=== PATIENT | male | born 2000 | race Caucasian/White ===

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

== ENCOUNTER 2024-04-10 16:21 | Inpatient (IN) ==
[2024-04-10 17:55] LABS: Basophils # (auto) 0.04 K/uL (0.00-0.20); Basophils % (auto) 0.8 %; Eosinophils # (auto) 0.15 K/uL (0.00-0.50); Eosinophils % (auto) 2.8 %; Hematocrit (blood only) 34.5 % (42.0-52.0); Hemoglobin 12.4 g/dl (14.0-18.0); Immature Granulocytes # (auto) 0.02 K/uL (0.01-0.20); Immature Granulocytes % (auto) 0.4 %; Lymphocytes # (auto) 2.51 K/uL (1.20-3.40); Lymphocytes % (auto) 47.1 %; Mean Corpuscular Hemoglobin 31.1 pg (25.0-34.0); Mean Corpuscular Hgb Conc 35.9 g/dL (32.0-36.0); Mean Corpuscular Volume 86.5 fL (80.0-100.0); Mean Platelet Volume 12.2 fL (9.4-12.4); Monocytes # (auto) 0.66 K/uL (0.11-0.59); Monocytes % (auto) 12.4 %; Neutrophils # (auto) 1.95 K/uL (1.40-6.50); Neutrophils % (auto) 36.5 %; Platelet Count 122 K/uL (130-400); RDW Coefficient of Variation 12.3 % (11.5-14.5); RDW Standard Deviation 39.1 fL (36.4-46.3); Red Blood Count 3.99 M/uL (4.70-6.10); White Blood Count 5.33 K/ul (4.8-10.8)
[2024-04-10 18:12] LABS: Alanine Aminotransferase 6 U/L (7-52); Albumin Globulin Ratio 1.3 (0.9-2); Albumin Level 3.9 gm/dl (3.4-5.0); Alkaline Phosphatase 49 U/L (34-104); Anion Gap 5 (3-11); Aspartate Aminotransferase 11 U/L (13-39); BUN Creatinine Ratio 26.9 (10-20); Bilirubin,Total 0.3 mg/dl (0.2-1.0); Blood Urea Nitrogen 25 mg/dl (6-23); Carbon Dioxide 29 mmol/L (21-32); Chloride 102 mmol/L (98-107); Glucose 86 mg/dl (70-99(Fasting)); Potassium 3.7 mmol/L (3.5-5.1); Sodium 136 mmol/L (136-145); Total Protein 6.9 gm/dl (6.0-8.3)
[2024-04-10] MEDS: SODIUM CHLORIDE 0.9% 1,000 ML IV ONE (18:16)
--- NOTE | 2024-04-10 18:27 | Emergency Department Note ---
Impression & Plan AMS (altered mental status) ED Provider Note NAME: AGA CHAPPELL AGE: 24 SEX: Male INFORMANT: Patient's family ED PROVIDER(S): Good Miner MD CHIEF COMPLAINT: Altered mental status PLAN: Disposition: Admitted Outpatient prescription management: none Referral: None MEDICAL DECISION MAKING: Patient presented because of altered mental status. He was arousable to voice and painful stimuli however was not providing any detailed history. Father is present and helps. Mother also presented and added to history. Patient underwent a workup. His ECG was normal. Cardiac monitoring was unremarkable. Patient was afebrile. He had unremarkable CBC, chemistry panel, LFTs, troponin, and medical alcohol. Tylenol and salicylate levels were negative as well. UDS was abnormal but consistent with his outpatient prescriptions. CT imaging the head was unremarkable. Chest x-ray negative as well. BioFire testing performed and revealed no evidence of an acute infection. The patient was hydrated. Further evaluation and management in the hospital will be necessary to elucidate his decline over the recent months. Family in agreement. Consultation was made with Dr. Curry of the [facility] service. Case discussed and diagnostics were reviewed. Patient was evaluated in the ER for further management. Care/management discussed with: wholesale manager Level of care consideration(s): After review of the information above and other included data, I feel the patient requires escalation of care to admission Triage Nursing notes: reviewed and agree them. Vital Signs: reviewed and remarkable for no significant abnormalities Additional History obtained from: Mother and father Chronic Medical/Social Conditions affecting care: Anxiety, bipolar Prior/ Outside/ External records reviewed: none Differential Diagnosis: Medication induced, infection, hypoglycemia, electrolyte abnormalities, overdose, toxicologic, cardiac sources, intracerebral event, neurologic, trauma, psychiatric, as well as other pathologies. Diagnostics, independently interpreted by me: ECG: Twelve-lead ECG reveals normal sinus rhythm at 92 beats per minute. No evidence of pericarditis, ischemia, ectopy, or dysrhythmia. Cardiac Monitoring: Cardiac monitoring ordered by me: The patient was placed on continuous cardiac monitoring and observed. It revealed a normal sinus rhythm at 64 beats per minute without ectopy or evidence of dysrhythmia. Medical decision rules: none Imaging studies: Head CT: A noncontrast CT scan of the head was performed and was negative for tumor, fracture, intracranial hemorrhage, or other acute pathology. Chest x-ray. Findings: A chest x-ray was performed and revealed no pneumothorax, effusion, infiltrate, pulmonary edema, free air under the diaphragm, or wide mediastinum. Impression: No acute disease. HPI: 24 year old Male arrives for evaluation of change in mental status. Father is present and helps with history. This started about 6 months ago and is worse over the last week. Patient was at mental health today and was lethargic and falling. Father notes he fell against the wall. The patient also notes the following associated symptoms, . The patient has had no new medication prescribed for relieving factors. Father notes that the patient has been sleeping for about 22 hours a day over the recent weeks. He is unsure of how the patient takes his medications because he does not monitor it. He is unaware of the patient taking any extra medications. History is limited secondary to the patient's mental status. PAST MEDICAL HISTORY: See Below, bipolar PAST SURGICAL HISTORY: See Below, SOCIAL HISTORY: See Below, lives with father HOME MEDICATIONS: See Below ALLERGIES: See Below VITALS: See Below PHYSICAL EXAMINATION: GENERAL: Sleeping but arousable, fatigued-appearing, in no distress HENT: Normocephalic, atraumatic. Oropharynx unremarkable. EYES: Normal conjunctiva. Sclera non-icteric. NECK: Inspection normal. Non-tender. Supple. No nuchal rigidity. FROM. No masses. RESPIRATORY: Clear to auscultation. No wheezes. No rales. Normal respiratory effort. Protecting airway. CARDIAC: Normal rate. Normal rhythm. No murmurs. No rubs. Extremities warm and well perfused. Pulses equal. No JVD. GI: Soft, non-distended. No tenderness to palpation. No rebound or guarding. No masses. RECTAL: Deferred. MUSCULOSKELETAL: Atraumatic. Chest examination reveals no tenderness. The back is symmetrical on inspection without obvious abnormality. There is no CVA tenderness to palpation. No joint edema. LOWER EXTREMITIES: Calves are equal size bilaterally and non-tender. No edema. No discoloration. NEURO: Altered sensorium. Not following commands. Responds to painful stimuli. SKIN: No rash or jaundice noted. PROCEDURES: none CRITICAL CARE: none OBSERVATION NOTE: none Past Med/Surg History Problem List AMS (altered mental status) (Acute) Substance abuse Borderline personality disorder Homicidal ideation (Acute) Bipolar disorder (Chronic) Generalized anxiety disorder (Chronic) Medical History Deliberate self-cutting Auditory hallucination Suicidal ideation Family History Other No significant family history Social History Smoking Status: Unknown if ever smoked Tobacco Type: E-cigarettes / Vaping Hx Substance Use: Yes Preferred Language: Thai Communication Ability: Impaired Electrical Instrument Repairer Required: No Beliefs That Will Affect Care: None Current Living Situation: Parent Current Living Situation Comment: Lives with father, parents are Other Information That Helps Us Care for You: No Feels Safe at Home: Yes Safety Concerns: Feels Safe At This Time Assistive Devices: None Allergies Allergies Allergy/AdvReac Type Severity Reaction Status Date / Time No Known Allergies Allergy Unverified 04/10/24 23:56 Home Meds Home Medications Medication Instructions Recorded Confirmed buprenorphine 8.6 mg-naloxone 2.1 1 tab sublingual BID 04/10/24 04/10/24 mg sublingual tablet (Zubsolv) cariprazine 6 mg capsule (Vraylar) 6 mg PO QAM 04/10/24 04/10/24 clozapine 100 mg tablet 100 mg PO HS 04/10/24 04/10/24 deutetrabenazine 12 mg 12 mg PO DAILY 04/10/24 04/10/24 tablet,extended release 24 hr (Austedo XR) dextromethorphan IR 45 1 tab PO BID 04/10/24 04/10/24 mg-bupropion ER 105 mg biphasic tablet (Auvelity) divalproex 500 mg tablet,extended 1,500 mg PO BID 04/10/24 04/10/24 release 24 hr gabapentin 600 mg tablet 600 mg PO QID 04/10/24 04/10/24 lisdexamfetamine 30 mg capsule 30 mg PO QAM 04/10/24 04/10/24 omega-3 fatty acids 1,000 mg 2,000 mg PO DAILY 04/10/24 04/10/24 capsule topiramate 100 mg tablet 100 mg PO AMHS 04/10/24 04/10/24 trazodone 150 mg tablet 300 mg PO HS 04/10/24 04/10/24 Results & Data (ED) Vital Signs Vital Signs - 24 hr 04/10/24 16:59 04/10/24 17:56 04/10/24 18:17 Temperature 36.8 C Temperature Source Temporal Artery Scan Pulse Rate 91 H 92 H Respiratory Rate 20 Respiratory Effort / Characteristics Non-Labored Spontaneous Respiratory Depth Normal Blood Pressure 94/62 L 92/54 L Blood Pressure Mean 72 67 Pulse Oximetry 93 Oxygen Delivery Method Room Air Sepsis Recent Fever Within 48 Hours No Sepsis New/Unexplained Change in Mental Status N/A Sepsis Action Taken by Nursing No Action Required 04/10/24 18:21 04/10/24 18:27 04/10/24 18:30 Temperature Temperature Source Pulse Rate 70 73 Respiratory Rate 12 16 Respiratory Effort / Characteristics Respiratory Depth Blood Pressure 112/79 Blood Pressure Mean 88 Pulse Oximetry 96 99 Oxygen Delivery Method Room Air Room Air Sepsis Recent Fever Within 48 Hours Sepsis New/Unexplained Change in Mental Status Sepsis Action Taken by Nursing 04/10/24 18:48 04/10/24 18:57 04/10/24 19:00 Temperature Temperature Source Pulse Rate 76 75 Respiratory Rate 16 12 Respiratory Effort / Characteristics Respiratory Depth Blood Pressure 107/66 Blood Pressure Mean 81 Pulse Oximetry 97 98 Oxygen Delivery Method Room Air Room Air Sepsis Recent Fever Within 48 Hours Sepsis New/Unexplained Change in Mental Status Sepsis Action Taken by Nursing 04/10/24 19:03 04/10/24 19:30 04/10/24 19:30 Temperature Temperature Source Pulse Rate 73 72 Respiratory Rate 12 18 Respiratory Effort / Characteristics Respiratory Depth Blood Pressure 115/66 115/66 Blood Pressure Mean 85 82 Pulse Oximetry 98 100 Oxygen Delivery Method Room Air Room Air Sepsis Recent Fever Within 48 Hours Sepsis New/Unexplained Change in Mental Status Sepsis Action Taken by Nursing 04/10/24 19:48 04/10/24 20:00 04/10/24 20:03 Temperature Temperature Source Pulse Rate 69 69 Respiratory Rate 13 14 Respiratory Effort / Characteristics Respiratory Depth Blood Pressure 113/75 Blood Pressure Mean 89 Pulse Oximetry 100 99 Oxygen Delivery Method Room Air Room Air Sepsis Recent Fever Within 48 Hours Sepsis New/Unexplained Change in Mental Status Sepsis Action Taken by Nursing 04/10/24 20:09 04/10/24 20:30 Temperature Temperature Source Pulse Rate 69 Respiratory Rate 12 Respiratory Effort / Characteristics Respiratory Depth Blood Pressure 112/68 Blood Pressure Mean 80 Pulse Oximetry 99 Oxygen Delivery Method Room Air Sepsis Recent Fever Within 48 Hours Sepsis New/Unexplained Change in Mental Status Sepsis Action Taken by Nursing Laboratory Data 04/10/24 17:34 04/10/24 17:34 Lab Results 04/10/24 04/10/24 04/10/24 Range/Units 17:34 18:18 19:36 WBC 5.33 (4.8-10.8) K/ul RBC 3.99 L (4.70-6.10) M/uL Hgb 12.4 L (14.0-18.0) g/dl Hct 34.5 L (42.0-52.0) % MCV 86.5 (80.0-100.0) fL MCH 31.1 (25.0-34.0) pg MCHC 35.9 (32.0-36.0) g/dL RDW Std Deviation 39.1 (36.4-46.3) fL RDW Coeff of Silverio 12.3 (11.5-14.5) % Plt Count 122 L (130-400) K/uL MPV 12.2 (9.4-12.4) fL Immature Gran % (Auto) 0.4 % Neut % (Auto) 36.5 % Lymph % (Auto) 47.1 % Emanuel % (Auto) 12.4 % Eos % (Auto) 2.8 % Baso % (Auto) 0.8 % Neut # (Auto) 1.95 (1.40-6.50) K/uL Lymph # (Auto) 2.51 (1.20-3.40) K/uL Emanuel # (Auto) 0.66 H (0.11-0.59) K/uL Eos # (Auto) 0.15 (0.00-0.50) K/uL Baso # (Auto) 0.04 (0.00-0.20) K/uL Immature Gran # (Auto) 0.02 (0.01-0.20) K/uL PT 11.5 (9.0-12.0) Seconds INR 1.1 (0.9-1.1) Sodium 136 (136-145) mmol/L Potassium 3.7 (3.5-5.1) mmol/L Chloride 102 (98-107) mmol/L Carbon Dioxide 29 (21-32) mmol/L Anion Gap 5 (3-11) BUN 25 H (6-23) mg/dl Creatinine 0.93 (0.6-1.4) mg/dl Est Cr Clr Drug Dosing Not Reportable eGFR 119.06 BUN/Creatinine Ratio 26.9 H (10-20) Glucose 86 (70-99(Fasting)) mg/dl Calcium 9.0 (8.6-10.3) mg/dl Magnesium 2.2 (1.7-2.4) mg/dl Total Bilirubin 0.3 (0.2-1.0) mg/dl AST 11 L (13-39) U/L ALT 6 L (7-52) U/L Alkaline Phosphatase 49 (34-104) U/L Total Creatine Kinase 31 (30-223) U/L Troponin I High Sens < 2.3 (0-20) pg/ml Total Protein 6.9 (6.0-8.3) gm/dl Albumin 3.9 (3.4-5.0) gm/dl Globulin 3.0 (2.5-4.0) gm/dl Albumin/Globulin Ratio 1.3 (0.9-2) Lipase 22 (11-82) U/L Vitamin B12 (180-914) pg/ml TSH 0.787 (0.300-4.500) uIu/ml Urine Color Yellow Urine Appearance Clear (Clear) Urine pH 6.0 (4.5-7.5) Ur Specific [place] 1.019 (1.000-1.030) Urine Protein Negative (Negative) Urine Glucose (UA) Negative (Negative) Urine Ketones Trace H (Negative) Urine Blood Negative (Negative) Urine Nitrite Negative (Negative) Urine Bilirubin Negative (Negative) Urine Urobilinogen Negative (Negative) Ur Leukocyte Esterase Negative (Negative) Salicylates < 3.0 L (3.0-30) mg/dl Urine Opiates Screen Neg (Neg) Ur Methadone, Qual Neg (Neg) Urine Fentanyl Screen Neg (Neg) Acetaminophen < 3 L (10-30) ug/ml Urine Barbiturates Neg (Neg) Ur Phencyclidine (PCP) Neg (Neg) U Amphetamin/Meth Scrn Pos H (Neg) MDMA (Ecstasy) Screen Pos H (Neg) U Benzodiazepines Scrn Neg (Neg) Ur Cocaine Metabolite Neg (Neg) U Marijuana (THC) Screen Pos H (Neg) Ethyl Alcohol mg/dL (<10.0) mg/dl Adenovirus (PCR) Not Detected (NotDetected) B. pertussis DNA (PCR) Not Detected (NotDetected) B.parapertussis DNA PCR Not Detected (NotDetected) C. pneumoniae DNA (PCR) Not Detected (NotDetected) Coronavirus OC43 (PCR) Not Detected (NotDetected) Coronavirus HKU1 (PCR) Not Detected (NotDetected) Coronavirus 229E (PCR) Not Detected (NotDetected) SARS-CoV-2 (PCR) Not Detected (NotDetected) Coronavirus NL63 (PCR) Not Detected (NotDetected) Human Metapneumovir PCR Not Detected (NotDetected) Influenza Type A (PCR) Not Detected (NotDetected) Influenza Type B (PCR) Not Detected (NotDetected) M. pneumoniae (PCR) Not Detected (NotDetected) Parainfluenza 1 (PCR) Not Detected (NotDetected) Parainfluenza 2 (PCR) Not Detected (NotDetected) Parainfluenza 3 (PCR) Not Detected (NotDetected) Parainfluenza 4 (PCR) Not Detected (NotDetected) RSV (PCR) Not Detected (NotDetected) Entero/Rhino (PCR) Not Detected (NotDetected) 04/10/24 Range/Units 19:46 WBC (4.8-10.8) K/ul RBC (4.70-6.10) M/uL Hgb (14.0-18.0) g/dl Hct (42.0-52.0) % MCV (80.0-100.0) fL MCH (25.0-34.0) pg MCHC (32.0-36.0) g/dL RDW Std Deviation (36.4-46.3) fL RDW Coeff of Silverio (11.5-14.5) % Plt Count (130-400) K/uL MPV (9.4-12.4) fL Immature Gran % (Auto) % Neut % (Auto) % Lymph % (Auto) % Emanuel % (Auto) % Eos % (Auto) % Baso % (Auto) % Neut # (Auto) (1.40-6.50) K/uL Lymph # (Auto) (1.20-3.40) K/uL Emanuel # (Auto) (0.11-0.59) K/uL Eos # (Auto) (0.00-0.50) K/uL Baso # (Auto) (0.00-0.20) K/uL Immature Gran # (Auto) (0.01-0.20) K/uL PT (9.0-12.0) Seconds INR (0.9-1.1) Sodium (136-145) mmol/L Potassium (3.5-5.1) mmol/L Chloride (98-107) mmol/L Carbon Dioxide (21-32) mmol/L Anion Gap (3-11) BUN (6-23) mg/dl Creatinine (0.6-1.4) mg/dl Est Cr Clr Drug Dosing eGFR BUN/Creatinine Ratio (10-20) Glucose (70-99(Fasting)) mg/dl Calcium (8.6-10.3) mg/dl Magnesium (1.7-2.4) mg/dl Total Bilirubin (0.2-1.0) mg/dl AST (13-39) U/L ALT (7-52) U/L Alkaline Phosphatase (34-104) U/L Total Creatine Kinase (30-223) U/L Troponin I High Sens (0-20) pg/ml Total Protein (6.0-8.3) gm/dl Albumin (3.4-5.0) gm/dl Globulin (2.5-4.0) gm/dl Albumin/Globulin Ratio (0.9-2) Lipase (11-82) U/L Vitamin B12 679 (180-914) pg/ml TSH (0.300-4.500) uIu/ml Urine Color Urine Appearance (Clear) Urine pH (4.5-7.5) Ur Specific [place] (1.000-1.030) Urine Protein (Negative) Urine Glucose (UA) (Negative) Urine Ketones (Negative) Urine Blood (Negative) Urine Nitrite (Negative) Urine Bilirubin (Negative) Urine Urobilinogen (Negative) Ur Leukocyte Esterase (Negative) Salicylates (3.0-30) mg/dl Urine Opiates Screen (Neg) Ur Methadone, Qual (Neg) Urine Fentanyl Screen (Neg) Acetaminophen (10-30) ug/ml Urine Barbiturates (Neg) Ur Phencyclidine (PCP) (Neg) U Amphetamin/Meth Scrn (Neg) MDMA (Ecstasy) Screen (Neg) U Benzodiazepines Scrn (Neg) Ur Cocaine Metabolite (Neg) U Marijuana (THC) Screen (Neg) Ethyl Alcohol mg/dL < 10.0 (<10.0) mg/dl Adenovirus (PCR) (NotDetected) B. pertussis DNA (PCR) (NotDetected) B.parapertussis DNA PCR (NotDetected) C. pneumoniae DNA (PCR) (NotDetected) Coronavirus OC43 (PCR) (NotDetected) Coronavirus HKU1 (PCR) (NotDetected) Coronavirus 229E (PCR) (NotDetected) SARS-CoV-2 (PCR) (NotDetected) Coronavirus NL63 (PCR) (NotDetected) Human Metapneumovir PCR (NotDetected) Influenza Type A (PCR) (NotDetected) Influenza Type B (PCR) (NotDetected) M. pneumoniae (PCR) (NotDetected) Parainfluenza 1 (PCR) (NotDetected) Parainfluenza 2 (PCR) (NotDetected) Parainfluenza 3 (PCR) (NotDetected) Parainfluenza 4 (PCR) (NotDetected) RSV (PCR) (NotDetected) Entero/Rhino (PCR) (NotDetected) Administered Medications Lactated Ringer's (Lr) 1,000 mls @ 100 mls/hr IV .Q10H [place] Stop: 04/11/24 20:14 Last Admin: 04/11/24 00:36 Dose: 100 mls/hr Documented By: JESSICA Discontinued Medications Sodium Chloride (Nss) 1,000 mls @ 999 mls/hr IV .Q1H1M ONE Stop: 04/10/24 19:09 Last Infusion: 04/10/24 19:20 Dose: Infused Documented By: Admin: 04/10/24 18:16 Dose: 999 mls/hr Documented By: LESAK Miscellaneous Information (Patient's Allergy Info Needs Entered) 1 each N/A ONE ONE Stop: 04/10/24 23:01 Last Admin: 04/10/24 23:56 Dose: Not Given Documented By: JESSICA Imaging Data Radiologist's Impression: Head CT 04/10/24 18:11 Clinical History: Injury. Technique: Axial computed tomography images were obtained of the brain from the vertex to the skull base without intravenous contrast. Findings: There is no sign of intracranial hemorrhage. There is normal kang-white matter differentiation with no sign of acute or old infarction. No midline shift or other form of herniation is identified. There is no hydrocephalus. No obvious mass lesion is seen on this noncontrast examination. The visualized portions of the orbits and paranasal sinuses appear unremarkable. The mastoid air cells appear clear Impression: Unremarkable noncontrast CT of the brain Electronically signed by Chris Mims 04-10-2024 7:28 PM Discharge Plan Visit Data Chief Complaint: Confusion Stated Complaint: LOW BLOOD PRESSURE ED Provider: Good Miner Discharge Problem: AMS (altered mental status) Patient Disposition: Admitted As Inpatient Discharge Instructions Interventions: ED Discharge Assessment Last Done: 04/10/24 22:46
[2024-04-10 18:35] LABS: INR 1.1 (0.9-1.1); Prothrombin Time 11.5 Seconds (9.0-12.0)
[2024-04-10 18:40] LABS: Creatine Kinase 31 U/L (30-223); Lipase 22 U/L (11-82); Magnesium 2.2 mg/dl (1.7-2.4)
[2024-04-10 18:46] LABS: Acetaminophen < 3 ug/ml (10-30); Salicylate < 3.0 mg/dl (3.0-30)
[2024-04-10 18:47] LABS: Troponin I High Sensitivity < 2.3 pg/ml (0-20)
[2024-04-10 19:11] LABS: Adenovirus PCR Not Detected (NotDetected); Bordetella parapertussis PCR Not Detected (NotDetected); Bordetella pertussis PCR Not Detected (NotDetected); Chlamydia pneumoniae PCR Not Detected (NotDetected); Coronavirus 229E PCR Not Detected (NotDetected); Coronavirus CoV-2 (COVID19)PCR Not Detected (NotDetected); Coronavirus HKU1 PCR Not Detected (NotDetected); Coronavirus NL63 PCR Not Detected (NotDetected); Coronavirus OC43PCR Not Detected (NotDetected); Human Metapneumovirus PCR Not Detected (NotDetected); Influenza A PCR Not Detected (NotDetected); Influenza B PCR Not Detected (NotDetected); Mycoplasma pneumoniae PCR Not Detected (NotDetected); Parainfluenza Virus 1 PCR Not Detected (NotDetected); Parainfluenza Virus 2 PCR Not Detected (NotDetected); Parainfluenza Virus 3 PCR Not Detected (NotDetected); Parainfluenza Virus 4 PCR Not Detected (NotDetected); Respiratory Syncytial VirusPCR Not Detected (NotDetected); Rhinovirus/Enterovirus PCR Not Detected (NotDetected)
--- NOTE | 2024-04-10 19:28 | CT Scan Report ---
Clinical History: Injury. Technique: Axial computed tomography images were obtained of the brain from the vertex to the skull base without intravenous contrast. Findings: There is no sign of intracranial hemorrhage. There is normal kang-white matter differentiation with no sign of acute or old infarction. No midline shift or other form of herniation is identified. There is no hydrocephalus. No obvious mass lesion is seen on this noncontrast examination. The visualized portions of the orbits and paranasal sinuses appear unremarkable. The mastoid air cells appear clear Impression: Unremarkable noncontrast CT of the brain Electronically signed by Chris Mims 04-10-2024 7:28 PM
[2024-04-10 19:57] LABS: Appearance Urine Clear (Clear); Bilirubin Urine Negative (Negative); Blood Urine Negative (Negative); Color Urine Yellow; Glucose Urine UA Negative (Negative); Ketones Urine Trace (Negative); Leukocyte Esterase Urine Negative (Negative); Nitrite Urine Negative (Negative); Protein Urine Negative (Negative); Specific Gravity Urine 1.019 (1.000-1.030); Urobilinogen Urine Negative (Negative)
[2024-04-10 20:33] LABS: Amphetamines+Metham, Urine Pos (Neg); Barbiturates, Urine Neg (Neg); Benzodiazepine, Urine Neg (Neg); Cocaine, Urine Neg (Neg); Fentanyl, Urine Neg (Neg); MDMA (Ecstacy), Urine Pos (Neg); Marijuana, Urine Pos (Neg); Methadone, Urine Neg (Neg); Opiate, Urine Neg (Neg); Phencyclidine, Urine Neg (Neg)
--- NOTE | 2024-04-10 20:37 | History & Physical Report ---
Date of Service April 10, 2024 Assessment & Plan (1) AMS (altered mental status): Plan: 24yo male with history of Anxiety, Depression, OCD, Personality disorder presenting from home with progressive functional decline over the last 6 months. Patient has been increasingly somnolent, difficulty with balance. He did fall today and strike his head. Patient is afebrile, HD stable, no obvious source of infection. Renal function and LFTS are unremarkable. Electroltyes WNL. Ammonia and TSH are WNL. He is on multiple psychiatric medications and manages them himself. Consider medication side effects contributing to patient's decline and current status? -Admit to medical with telemetry -Keep NPO for now, maintain fall precautions and aspiration precautions -Neuro checks with GCS q 4 hours -Will hold medications -Check depakote level -LR at 100mL/hr x 2L -Maintain 1:1 observation -Psychiatry consultation appreciated -Medications should be reviewed with patient's outpatient psychiatric provider History of Present Illness Chief Complaint: confusion Primary Care Provider: Salas Morales MD 24yo male with history of anxiety, depression, OCD presenting with confusion. Patient was unable to provide history at time of admission. History obtained through discussion with ER attending and staff. Patient with longstanding history of psychiatric illness. He presents today with 6 months of progressive functional decline - lethargy and falling. Father reports that patient sleeps 22 hours per day. He is managing his own medications but family is uncertain how he is taking them. Patient with low blood pressure on arrival at 92/54 which improved after 1L NSS ER Course: NSS x 1L Allergies Allergy/AdvReac Type Severity Reaction Status Date / Time No Known Allergies Allergy Unverified 04/10/24 23:56 Home Medications Medication Instructions Recorded Confirmed Type buprenorphine 8.6 mg-naloxone 2.1 1 tab sublingual BID 04/10/24 04/10/24 History mg sublingual tablet (Zubsolv) cariprazine 6 mg capsule (Vraylar) 6 mg PO QAM 04/10/24 04/10/24 History clozapine 100 mg tablet 100 mg PO HS 04/10/24 04/10/24 History deutetrabenazine 12 mg 12 mg PO DAILY 04/10/24 04/10/24 History tablet,extended release 24 hr (Austedo XR) dextromethorphan IR 45 1 tab PO BID 04/10/24 04/10/24 History mg-bupropion ER 105 mg biphasic tablet (Auvelity) divalproex 500 mg tablet,extended 1,500 mg PO BID 04/10/24 04/10/24 History release 24 hr gabapentin 600 mg tablet 600 mg PO QID 04/10/24 04/10/24 History lisdexamfetamine 30 mg capsule 30 mg PO QAM 04/10/24 04/10/24 History omega-3 fatty acids 1,000 mg 2,000 mg PO DAILY 04/10/24 04/10/24 History capsule topiramate 100 mg tablet 100 mg PO AMHS 04/10/24 04/10/24 History trazodone 150 mg tablet 300 mg PO HS 04/10/24 04/10/24 History Past Med/Surg History Problem List AMS (altered mental status) (Acute) Substance abuse Borderline personality disorder Homicidal ideation (Acute) Bipolar disorder (Chronic) Generalized anxiety disorder (Chronic) Medical History Deliberate self-cutting Auditory hallucination Suicidal ideation Family History Other No significant family history Social History Smoking Status: Never smoker Tobacco Type: E-cigarettes / Vaping Preferred Language: Filipino Communication Ability: Effective Beliefs That Will Affect Care: None Current Living Situation: Family Feels Safe at Home: Yes Assistive Devices: Glasses Review of Systems Review of Systems: Unobtainable due to cognitive status Physical Exam Physical Exam: General: patient somnolent, does not answer questions or follow commands at present, opens eyes to verbal command and withdraws from pain Skin: warm, dry, intact, no rashes or lesions HEENT: NC/AT, pupils equal round and sluggishly reactive, anicteric sclera, conjunctiva without injection, external ear normal to inspection and nontender, nares patent, dry mucus membranes, dentition intact, no oropharyngeal lesions, neck supple, trachea midline, no LAD, no thyromegaly, no JVD Heart: +S1/S2, regular, no m/r/g Lungs: equal air entry bilaterally, no rales/rhonchi/wheezes Abd: +BS, soft, NT/ND, no masses/organomegaly/ascites Ext: warm, 2+ pulses in UE/LE bilaterally, no clubbing/cyanosis or edema Neuro: Patient somnolent, opens eyes to verbal command and noxious stimuli Results & Data Results & Data Vital Signs (Past 12 Hours) Vital Signs Temp Pulse Resp BP Pulse Ox O2 Del Method 04/10/24 19:48 69 13 100 Room Air 04/10/24 19:30 72 18 115/66 100 Room Air 04/10/24 19:30 115/66 04/10/24 19:03 73 12 98 Room Air 04/10/24 19:00 107/66 04/10/24 18:57 75 12 98 Room Air 04/10/24 18:48 76 16 97 Room Air 04/10/24 18:30 112/79 04/10/24 18:27 73 16 99 Room Air 04/10/24 18:21 70 12 96 Room Air 04/10/24 18:17 92/54 L 04/10/24 17:56 92 H 04/10/24 16:59 36.8 C 91 H 20 94/62 L 93 Room Air Laboratory Results Laboratory Results WBC 5.33 K/ul (4.8-10.8) 04/10/24 17:34 RBC 3.99 M/uL (4.70-6.10) L 04/10/24 17:34 Hgb 12.4 g/dl (14.0-18.0) L 04/10/24 17:34 Hct 34.5 % (42.0-52.0) L 04/10/24 17:34 MCV 86.5 fL (80.0-100.0) 04/10/24 17:34 MCH 31.1 pg (25.0-34.0) 04/10/24 17:34 MCHC 35.9 g/dL (32.0-36.0) 04/10/24 17:34 RDW Std Deviation 39.1 fL (36.4-46.3) 04/10/24 17:34 RDW Coeff of Silverio 12.3 % (11.5-14.5) 04/10/24 17:34 Plt Count 122 K/uL (130-400) L 04/10/24 17:34 MPV 12.2 fL (9.4-12.4) 04/10/24 17:34 Immature Gran % (Auto) 0.4 % 04/10/24 17:34 Neut % (Auto) 36.5 % 04/10/24 17:34 Lymph % (Auto) 47.1 % 04/10/24 17:34 [place] % (Auto) 12.4 % 04/10/24 17:34 Eos % (Auto) 2.8 % 04/10/24 17:34 Baso % (Auto) 0.8 % 04/10/24 17:34 Neut # (Auto) 1.95 K/uL (1.40-6.50) 04/10/24 17:34 Lymph # (Auto) 2.51 K/uL (1.20-3.40) 04/10/24 17:34 [place] # (Auto) 0.66 K/uL (0.11-0.59) H 04/10/24 17:34 Eos # (Auto) 0.15 K/uL (0.00-0.50) 04/10/24 17:34 Baso # (Auto) 0.04 K/uL (0.00-0.20) 04/10/24 17:34 Immature Gran # (Auto) 0.02 K/uL (0.01-0.20) 04/10/24 17:34 PT 11.5 Seconds (9.0-12.0) 04/10/24 17:34 INR 1.1 (0.9-1.1) 04/10/24 17:34 Sodium 136 mmol/L (136-145) 04/10/24 17:34 Potassium 3.7 mmol/L (3.5-5.1) 04/10/24 17:34 Chloride 102 mmol/L (98-107) 04/10/24 17:34 Carbon Dioxide 29 mmol/L (21-32) 04/10/24 17:34 Anion Gap 5 (3-11) 04/10/24 17:34 BUN 25 mg/dl (6-23) H 04/10/24 17:34 Creatinine 0.93 mg/dl (0.6-1.4) 04/10/24 17:34 Est Cr Clr Drug Dosing Not Reportable 04/10/24 17:34 eGFR 119.06 04/10/24 17:34 BUN/Creatinine Ratio 26.9 (10-20) H 04/10/24 17:34 Glucose 86 mg/dl (70-99(Fasting)) 04/10/24 17:34 Calcium 9.0 mg/dl (8.6-10.3) 04/10/24 17:34 Magnesium 2.2 mg/dl (1.7-2.4) 04/10/24 17:34 Total Bilirubin 0.3 mg/dl (0.2-1.0) 04/10/24 17:34 AST 11 U/L (13-39) L 04/10/24 17:34 ALT 6 U/L (7-52) L 04/10/24 17:34 Alkaline Phosphatase 49 U/L (34-104) 04/10/24 17:34 Ammonia 17.0 umol/L (18-72) L 04/10/24 22:56 Total Creatine Kinase 31 U/L (30-223) 04/10/24 17:34 Troponin I High Sens < 2.3 pg/ml (0-20) 04/10/24 17:34 Total Protein 6.9 gm/dl (6.0-8.3) 04/10/24 17:34 Albumin 3.9 gm/dl (3.4-5.0) 04/10/24 17:34 Globulin 3.0 gm/dl (2.5-4.0) 04/10/24 17:34 Albumin/Globulin Ratio 1.3 (0.9-2) 04/10/24 17:34 Lipase 22 U/L (11-82) 04/10/24 17:34 Vitamin B12 679 pg/ml (180-914) 04/10/24 19:46 TSH 0.787 uIu/ml (0.300-4.500) 04/10/24 17:34 Urine Color Yellow 04/10/24 19:36 Urine Appearance Clear (Clear) 04/10/24 19:36 Urine pH 6.0 (4.5-7.5) 04/10/24 19:36 Ur Specific [place] 1.019 (1.000-1.030) 04/10/24 19:36 Urine Protein Negative (Negative) 04/10/24 19:36 Urine Glucose (UA) Negative (Negative) 04/10/24 19:36 Urine Ketones Trace (Negative) H 04/10/24 19:36 Urine Blood Negative (Negative) 04/10/24 19:36 Urine Nitrite Negative (Negative) 04/10/24 19:36 Urine Bilirubin Negative (Negative) 04/10/24 19:36 Urine Urobilinogen Negative (Negative) 04/10/24 19:36 Ur Leukocyte Esterase Negative (Negative) 04/10/24 19:36 Salicylates < 3.0 mg/dl (3.0-30) L 04/10/24 17:34 Urine Opiates Screen Neg (Neg) 04/10/24 19:36 Ur Methadone, Qual Neg (Neg) 04/10/24 19:36 Urine Fentanyl Screen Neg (Neg) 04/10/24 19:36 Acetaminophen < 3 ug/ml (10-30) L 04/10/24 17:34 Urine Barbiturates Neg (Neg) 04/10/24 19:36 Ur Phencyclidine (PCP) Neg (Neg) 04/10/24 19:36 U Amphetamin/Meth Scrn Pos (Neg) H 04/10/24 19:36 MDMA (Ecstasy) Screen Pos (Neg) H 04/10/24 19:36 U Benzodiazepines Scrn Neg (Neg) 04/10/24 19:36 Ur Cocaine Metabolite Neg (Neg) 04/10/24 19:36 U Marijuana (THC) Screen Pos (Neg) H 04/10/24 19:36 Ethyl Alcohol mg/dL < 10.0 mg/dl (<10.0) 04/10/24 19:46 Adenovirus (PCR) Not Detected (NotDetected) 04/10/24 18:18 B. pertussis DNA (PCR) Not Detected (NotDetected) 04/10/24 18:18 B.parapertussis DNA PCR Not Detected (NotDetected) 04/10/24 18:18 C. pneumoniae DNA (PCR) Not Detected (NotDetected) 04/10/24 18:18 Coronavirus OC43 (PCR) Not Detected (NotDetected) 04/10/24 18:18 Coronavirus HKU1 (PCR) Not Detected (NotDetected) 04/10/24 18:18 Coronavirus 229E (PCR) Not Detected (NotDetected) 04/10/24 18:18 SARS-CoV-2 (PCR) Not Detected (NotDetected) 04/10/24 18:18 Coronavirus NL63 (PCR) Not Detected (NotDetected) 04/10/24 18:18 Human Metapneumovir PCR Not Detected (NotDetected) 04/10/24 18:18 Influenza Type A (PCR) Not Detected (NotDetected) 04/10/24 18:18 Influenza Type B (PCR) Not Detected (NotDetected) 04/10/24 18:18 M. pneumoniae (PCR) Not Detected (NotDetected) 04/10/24 18:18 Parainfluenza 1 (PCR) Not Detected (NotDetected) 04/10/24 18:18 Parainfluenza 2 (PCR) Not Detected (NotDetected) 04/10/24 18:18 Parainfluenza 3 (PCR) Not Detected (NotDetected) 04/10/24 18:18 Parainfluenza 4 (PCR) Not Detected (NotDetected) 04/10/24 18:18 RSV (PCR) Not Detected (NotDetected) 04/10/24 18:18 Entero/Rhino (PCR) Not Detected (NotDetected) 04/10/24 18:[address] 04/10/24 18:11 Clinical History: Injury. Technique: Axial computed tomography images were obtained of the brain from the vertex to the skull base without intravenous contrast. Findings: There is no sign of intracranial hemorrhage. There is normal kang-white matter differentiation with no sign of acute or old infarction. No midline shift or other form of herniation is identified. There is no hydrocephalus. No obvious mass lesion is seen on this noncontrast examination. The visualized portions of the orbits and paranasal sinuses appear unremarkable. The mastoid air cells appear clear Impression: Unremarkable noncontrast CT of the brain Electronically signed by Chris Mims 04-10-2024 7:28 PM PG Care Time/CCT Total # of Minutes Spent Total Time Spent with Patient: Total time spent is greater than 50% in coordination of care (as documented) at patient's floor/unit and/or counseling patient: Coding Level of Care Code 37431 INT INP/OBS CARE MIN Diagnoses AMS (altered mental status) R41.82
[2024-04-10] MEDS ORDERED: ACETAMINOPHEN 325 MG TAB PO PRN (22:46)
[2024-04-10] MEDS ORDERED: ONDANSETRON INJ 2 MG/ML 2 ML VIAL IV PRN (22:46)
[2024-04-10 23:22] LABS: Thyroid Stimulating Hormone 0.787 uIu/ml (0.300-4.500)
[2024-04-10] MEDS: Patient's ALLERGY Info needs ENTERED ONE (23:56)
[2024-04-11] MEDS: LACTATED RINGER'S 1,000 ML IV SCH ×2 (00:36→22:38)
[2024-04-11] MEDS: LACTATED RINGER'S 500 ML IV ONE (07:30)
[2024-04-11 07:55] LABS: Hematocrit (blood only) 34.6 % (42.0-52.0); Hemoglobin 12.1 g/dl (14.0-18.0); Mean Corpuscular Hemoglobin 30.9 pg (25.0-34.0); Mean Corpuscular Volume 88.3 fL (80.0-100.0); Mean Platelet Volume 12.2 fL (9.4-12.4); Platelet Count 110 K/uL (130-400); RDW Coefficient of Variation 12.8 % (11.5-14.5); RDW Standard Deviation 41.5 fL (36.4-46.3); Red Blood Count 3.92 M/uL (4.70-6.10); White Blood Count 5.74 K/ul (4.8-10.8)
[2024-04-11 08:24] LABS: Albumin Level 3.6 gm/dl (3.4-5.0); Bilirubin Direct 0.1 mg/dl (0-0.2); Bilirubin,Total 0.4 mg/dl (0.2-1.0); Calcium 8.7 mg/dl (8.6-10.3); Creatinine Clr Calc Pharmacy 149.4 ml/min; Total Protein 6.4 gm/dl (6.0-8.3)
--- NOTE | 2024-04-11 11:15 | Psychiatric Consultation ---
Date of Consultation April 11, 2024 Impression / Recommendations Impression Diagnostically consistent with altered mental status of unclear origin. Differential includes polypharmacy/medication side effects with recent medication changes including addition of high dose trazodone and Austedo and formulation change in suboxone vs intentional misuse of medication/s with known substance use history vs intentional overdose (but difficult to confirm given both his and father's denial of this possibility and no ability to quickly screen levels of prescribed medications, but normal QTc on EKG and labwork and UDS reassuring for lack of significant overdose). Catatonia unlikely as no evide nce for this on exam today, cross em score of 0 vs 2 (if considered repetitive phrases as mutism). Suspect possible overuse of gabapentin due to increased depression recently and his history of attempting to self-medicate using substances and recent requests for benzodiazepines suggesting his desire to feel more sedated. Gabapentin can be misused especially by those more vulnerable to substance use disorders. Given unclear cause of confusion recommend significant reduction of psychiatric medications and then they can be gradually reintroduced as needed. Given his report of increased depression with weight loss and poor appetite recommended inpatient psychiatric hospitalization once medically stable. He declines this, prefers to continue with outpatient treatment. At this time I do not feel he meets 302 criteria, despite review of petitioning statement, as he denies SI, denies HI, denies any hallucinations/psychosis and doesn't present with signs of psychosis on exam nor behavioral dysregulation and father provided reassuring collateral. However, will attempt further collateral from his outpatient psychiatric provider and continue to re-assess criteria. Current risk of self-harm is low given denial of SI, future-oriented, has outpatient providers and engaged in treatment discussions. Chronic risk is moderate to high given multiple prior attempts, psychiatric comorbid diagnoses, hx emotional reactivity, BPD, past hospitalizations but also with protective factors of family support, outpatient providers, and ability to establish therapeutic alliance. Overall, I spent a total of 60 minutes with this case including review of chart records, review of labwork, review of EKG QTc, direct evaluation of the patient at bedside, counseling the patient, discussion of the patient with the hospitalist provider, discussion with the psychiatric liason during clinical rounds, review of collateral historian information from the family and documentation in the electronic health record. (1) Schizoaffective disorder: (2) Borderline personality disorder: (3) Substance use disorder: Plan -If he attempts to leave AMA please call psych liason to determine potential for 302 criteria -Hold prior to admission: * trazodone * prazosin * topiramate * Vyvanse * Vraylar * Depakote * Austedo -Restart gabapentin at 200mg QID given concern that abrupt discontinuation, especially if he has been misusing this, can lead to increased risk for seizures. Would avoid further dose titration in outpatient setting given concern for potential misuse. -Restart clozapine at 50mg HS given abrupt discontinuation can cause clozapine withdrawal psychosis and clozapine helps reduce risk for emergence of psychosis or mood instability. -Valproic acid level pending, consider clozapine level -Monitor for signs of depression, po intake -Psychiatry to continue to follow and re-assess -JOAQUIN signed for [facility], will attempt to get further collateral/records Psych History Identifying Data Lamine Gray is a 24 yo man with a history of schizoaffective disorder, BPD, substance use in sustained remission and on maintenance treatment of buprenorphine (also being used for pain per his report) admitted medically for increased falls, altered mental status. Psychiatry consulted for "confusion, polypharmacy". Chief Complaint "The fall was as a result of being dehydrated". History of Present Illness Lamine presented to the hospital with his father who remains at bedside this morning. Lamine requests his father remain for our interview and signed an JOAQUIN for him. Both report recent increase in sleepiness and poor appetite. Lamine attributes this to depression but also feels in recent days he's been struggling with brain fog and unsteadiness and dizziness which is new. He thinks the fall yesterday may have been due to dehydration. Reviewed 302 petitioning statement completed by his outpatient psychiatric provider Jayla Mota which states concern for worsening depression, possible overdose of medication as father showed picture of pills strewn about in his room. Also describes that he reported delusions and hallucinations and SI in the last 30 days and has experienced weight loss due to poor appetite. Today in discussing these concerns, and his history of involuntary psychiatric admissions due to difficulty with insight at times into the severity of his symptoms, Lamine denies any recent suicidal ideation and adamantly denies that he intentionally took any addition medication or missed medication doses in recent weeks. He confirms history of chronic intermittent SI but denies any suicidal thoughts in the last 60 days. He also denies any recent hallucinations nor delusions nor paranoia. His father confirms this stating he has no concerns that Lamine worsening cognitive status and falls could have been from a suicide attempt and he has no safety concerns for risk of harm to self or misuse of medications. Both report only recent changes were addition of Austedo about 2 weeks ago in exchange from amantadine and recent change in suboxone formulation which Lamine reports is more immediate release and "faster acting, you feel the effect more strongly". Reviewed that sometimes suboxone can interact negatively with other sedating medications to worsen confusion or dizziness. Asked about potentially misusing any of his other medications he reports possible overuse of gabapentin recently "maybe too much gabapentin" due to confusion about timing of when to take it. But later he confirms to me he's been taking gabapentin QID as pre scribed. Lamine participates willingly with assessment but struggles at times with organizing his thoughts, often repeats a phrase 3-4 times before moving forward with the conversation. Long pauses at points while he searches for information, i.e trying to recall the practice name where his teletherapist works, which he attributes to sense of thoughts being cloudy. He expresses some confusion about his recent medication adjustments noting "I need to know how to dose it". Reviewed his current medications with Lamine and his father and confirmed via [employer] review of recent prescription fills. Psychiatric history notable for multiple past suicide attempts, multiple prior psychiatric medication trials and previous inpatient psychiatric admissions (>9, last in 2021 at [place], previously at [facility] in 2020). Currently has been seeing Jayla Mota for last year at [facility] (he signed JOAQUIN), therapy with DR. Mendes via telehealth. Uses medical marijuana, denies any other substance use. Discussed potential benefits of inpatient psychiatric hospitalization for medication adjustments once medically stable and given concern for depression contributing to falls. Both Lamine and his father feel this would not be beneficial nor necessary given past history of involuntary hospitalizations with limited benefit and resulting disruption to outpatient services which his father reports in the past has lead to splitting with outpatient providers and going between providers seeking various medications and resultant polypharmacy. Both feel working with Jayla has been very helpful and both would like to focus on reducing polypharmacy. However, notably 302 petition states he was recently asking to add benzodiazepines so unclear how motivated Lamine truly is to reduce polypharmacy but he's consenting to current recommendation to only restart medications gradually. Allergies Allergy/AdvReac Type Severity Reaction Status Date / Time No Known Allergies Allergy Unverified 04/10/24 23:56 Home Medications Medication Instructions Recorded Confirmed Type buprenorphine 8.6 mg-naloxone 2.1 1 tab sublingual BID 04/10/24 04/10/24 History mg sublingual tablet (Zubsolv) cariprazine 6 mg capsule (Vraylar) 6 mg PO QAM 04/10/24 04/10/24 History clozapine 100 mg tablet 100 mg PO HS 04/10/24 04/10/24 History deutetrabenazine 12 mg 12 mg PO DAILY 04/10/24 04/10/24 History tablet,extended release 24 hr (Austedo XR) dextromethorphan IR 45 1 tab PO BID 04/10/24 04/10/24 History mg-bupropion ER 105 mg biphasic tablet (Auvelity) divalproex 500 mg tablet,extended 1,500 mg PO BID 04/10/24 04/10/24 History release 24 hr gabapentin 600 mg tablet 600 mg PO QID 04/10/24 04/10/24 History lisdexamfetamine 30 mg capsule 30 mg PO QAM 04/10/24 04/10/24 History omega-3 fatty acids 1,000 mg 2,000 mg PO DAILY 04/10/24 04/10/24 History capsule topiramate 100 mg tablet 100 mg PO AMHS 04/10/24 04/10/24 History trazodone 150 mg tablet 300 mg PO HS 04/10/24 04/10/24 History Patient History Medical History (Updated 04/11/24 @ 17:13 by Aysha Eason MD) Substance use disorder Deliberate self-cutting Auditory hallucination Suicidal ideation Family History Other No significant family history Social History Smoking Status: Unknown if ever smoked Tobacco Type: E-cigarettes / Vaping Hx Substance Use: Yes Preferred Language: Cypriot Communication Ability: Impaired [employer] Art [employer] Required: No Beliefs That Will Affect Care: None Current Living Situation: Parent Current Living Situation Comment: Lives with father, parents are Other Information That Helps Us Care for You: No Feels Safe at Home: Yes Safety Concerns: Feels Safe At This Time Assistive Devices: None Physical Exam Psychiatric: Orientation: alert and oriented x 3 Apperance: appropriately dressed Eye Contact: + fair eye contact Motor Behavior: no abnormal motor movements Speech: + abnormal rate/rhythm/volume of speech (repetitive with pauses at times) Affect: + constricted affect Mood: + depressed mood; no anxious mood Thought Process: + perseveration Thought Content: reality based without delusions Suicidal Thoughts: denies suicidal thoughts Homicidal Thoughts: denies homicidal thoughts Hallucinations: no auditory hallucinations and no visual hallucinations Cognition: recent memory grossly intact, remote memory grossly intact, attention grossly intact and language grossly intact Insight: + limited insight Judgment: + limited judgement Vital Signs (Past 24 Hours): Last Vital Signs Temp 36.8 C 04/10/24 16:59 Pulse 51 L 04/11/24 08:03 Resp 18 04/11/24 08:03 BP 122/84 04/11/24 08:03 Pulse Ox 100 04/11/24 08:03 O2 Del Method Room Air 04/10/24 22:30 Results & Data (PSY) Medications Administered Lactated Ringer's (Lr) 1,000 mls @ 100 mls/hr IV .Q10H [place] Stop: 04/11/24 20:14 Last Admin: 04/11/24 08:43 Dose: 100 mls/hr Documented By: Infusion: 04/11/24 08:43 Dose: Infused Documented By: Admin: 04/11/24 00:36 Dose: 100 mls/hr Documented By: JESSICA Coding Level of Care Code 88624 IN/OBS CONSULT LVL 4,60M Diagnoses Schizoaffective disorder F25.9 Borderline personality disorder F60.3 Substance use disorder F19.90
--- NOTE | 2024-04-11 11:25 | Hospitalist Progress Note ---
Date of Service April 11, 2024 Assessment & Plan Admission and Anticipated Discharge Date Admission Date: April 10, 2024 Supervising Physician Co-Signing Physician Notes Toxic Metabolic Encephalopathy - 302 petition from [place] --> Picture of med bottles open on floor, had been asking for benzos recently. Had been following with [facility] for a year and had been stable. Pt denies active SI/HI on admitting provider assessment, and his father is at bedside also reports that he has not had any SI/HI. Discussed w/ Dr. Eason. Does not currently meet 302 criteria. - Hx of suboxone tx for history of opioid use - Sedated, confused state on admission. - Recently switched to Zubsolv formulation of bup-nalox - Recently started on Austedo XR No metabolic acidosis/alkalosis, renal function is normal, no transaminitis, ammonia is normal, UA is uninfected, CBC does not show evidence of infection or anemia and no evidence of agranulocytosis. Patient is afebrile. Alcohol is negative At time of provider assessment 04/11 he is oriented to name, place, and reason for admission although does have some word finding difficulty and generally circumferential thought process. Denies SI/HI Suspect acute toxic encephalopathy with differential including supratherapeutic gabapentin and polypharmacy. Plan as below: -> Start very low dose gabapentin (do not hold entirely due to risk of seizure). 100 now, then 200qid. Will adjust back (home dose 600mg QID) -> Restart low dose clozapine (holding can cause withdrawal psychosis). 50mg daily -> Hold auvelity, hold divalproex, lisdexamfetamine, trazodone, prazoine, vrylar, and topiramate Continue buprenorphinenaloxone, do not feel this is meaningfully contributing and risk of withdrawal if held Did discuss contact information with patient. He would like both his parents listed as HIPAA contacts and emergency contacts, and would like both called in the case of an emergency. Registration notified and will update information. Patient's father is with him at bedside and expresses an understanding of the plan and current condition. Did offer to call patient's mother to also give an update on admission and plan of care to which he declines at time of admission, if he would like an update given or if there are any questions I am happy to discuss these and can be reached through nursing staff. DVT prophylaxis: Low risk, SCDs CODE STATUS: Full code Disposition: MS/T Diet: Safe tray regular Subjective Seen at bedside with his father present. Somewhat increased latency of speech and some word finding difficulty but thought process generally circumferential. No fevers chills, no respiratory symptoms. Denies taking extra medications. Endorses recent switch in buprenorphineSuboxone and changes noted by psychiatry. Denies taking any extra medications or exogenous medications/substances. Reports that his gabapentin dose is supposed to be 2400 mg total daily dose, we directed this when asked if he had any extra doses of gabapentin. Denies SI/HI. Physical Exam Physical Exam: General: Alert and oriented to name, place, city, and date. NAD. Cooperative. Increased speech latency, circumferential thought process. Affect slightly withdrawn. Denies SI/HI. Not responding to internal stimuli. HEENT: Atraumatic, normocephalic. Vision and hearing intact Pulm: Symmetrical chest rise. No increased work of breathing. No respiratory distress. Extremities: Cap refill brisk. Results & Data Results & Data Vital Signs (Past 12 Hours) Vital Signs Pulse Resp BP Pulse Ox 04/11/24 08:03 51 L 18 122/84 100 04/11/24 06:54 62 19 95 04/11/24 06:30 54 L 16 94 04/11/24 06:30 112/74 04/11/24 06:30 112/74 04/11/24 06:06 45 L 15 99 04/11/24 06:00 111/70 04/11/24 05:57 46 L 13 100 04/11/24 05:42 50 L 20 95 04/11/24 05:30 94/51 L 04/11/24 05:30 94/51 L 04/11/24 05:27 47 L 14 98 04/11/24 05:12 49 L 13 97 04/11/24 04:42 52 L 16 97 04/11/24 04:30 102/61 04/11/24 04:18 51 L 13 99 04/11/24 04:00 111/70 04/11/24 04:00 111/70 04/11/24 04:00 55 L 12 100 04/11/24 03:54 55 L 18 99 04/11/24 03:45 60 17 98 04/11/24 03:30 58 L 13 99 04/11/24 03:30 117/80 04/11/24 03:12 55 L 16 99 04/11/24 02:48 49 L 14 99 04/11/24 02:30 124/77 04/11/24 02:30 124/77 04/11/24 02:18 59 L 12 99 04/11/24 02:12 59 L 17 99 04/11/24 02:06 59 L 12 99 04/11/24 01:30 58 L 16 98 04/11/24 01:30 104/62 04/11/24 01:30 104/62 04/11/24 01:30 104/62 04/11/24 01:30 104/62 04/11/24 01:21 59 L 13 99 04/11/24 01:15 58 L 14 98 04/11/24 00:42 64 15 99 04/11/24 00:33 60 13 100 04/11/24 00:30 113/70 04/11/24 00:30 113/70 04/11/24 00:30 113/70 04/11/24 00:30 113/70 04/11/24 00:24 70 15 99 04/11/24 00:15 69 14 99 04/11/24 00:03 77 15 99 04/11/24 00:00 116/80 04/11/24 00:00 116/80 04/10/24 23:59 66 04/10/24 23:30 116/76 PG Care Time/CCT Total # of Minutes Spent Total Time Spent with Patient: Total time spent is greater than 50% in coordination of care (as documented) at patient's floor/unit and/or counseling patient: Coding Level of Care Code 83780 SUB INP/OBS CARE 3/50MIN
[2024-04-11] MEDS: GABAPENTIN 100 MG CAP PO ONE (13:03)
[2024-04-11] MEDS: BUPRENORPHINE/NALOXONE 8/2 MG TAB SL SCH (17:49)
[2024-04-11] MEDS: cloZAPine 25 MG TAB PO SCH (17:49)
[2024-04-11] MEDS: GABAPENTIN 100 MG CAP PO SCH (17:49)
[2024-04-11] MEDS ORDERED: cloZAPine 25 MG TAB PO SCH (21:00)
[2024-04-12 04:36] LABS: Hematocrit (blood only) 33.7 % (42.0-52.0); Hemoglobin 11.8 g/dl (14.0-18.0); Mean Corpuscular Hemoglobin 30.8 pg (25.0-34.0); Mean Platelet Volume 12.5 fL (9.4-12.4); Platelet Count 123 K/uL (130-400); RDW Coefficient of Variation 12.6 % (11.5-14.5); RDW Standard Deviation 40.2 fL (36.4-46.3); Red Blood Count 3.83 M/uL (4.70-6.10); White Blood Count 5.88 K/ul (4.8-10.8)
[2024-04-12 04:43] LABS: Albumin Globulin Ratio 1.2 (0.9-2); Albumin Level 3.5 gm/dl (3.4-5.0); Bilirubin,Total 0.4 mg/dl (0.2-1.0); Calcium 8.8 mg/dl (8.6-10.3); Creatinine Clr Calc Pharmacy 135.8 ml/min; Globulin 2.9 gm/dl (2.5-4.0); Potassium 4.2 mmol/L (3.5-5.1); Total Protein 6.4 gm/dl (6.0-8.3)
[2024-04-12 04:59] LABS: Basophils # (auto) 0.07 K/uL (0.00-0.20); Basophils % (auto) 1.2 %; Eosinophils # (auto) 0.28 K/uL (0.00-0.50); Eosinophils % (auto) 4.8 %; Immature Granulocytes # (auto) 0.02 K/uL (0.01-0.20); Immature Granulocytes % (auto) 0.3 %; Lymphocytes # (auto) 3.43 K/uL (1.20-3.40); Lymphocytes % (auto) 58.3 %; Monocytes # (auto) 0.84 K/uL (0.11-0.59); Monocytes % (auto) 14.3 %; Neutrophils # (auto) 1.24 K/uL (1.40-6.50); Neutrophils % (auto) 21.1 %; Polychromasia 1+
--- NOTE | 2024-04-12 07:21 | Hospitalist Progress Note ---
Date of Service April 12, 2024 Assessment & Plan (1) Acute encephalopathy: Plan: 24yo male with history of Anxiety, Depression, OCD, Personality disorder presenting from home with progressive functional decline over the last 6 months. Patient has been increasingly somnolent, difficulty with balance. He did fall and strike his head. Was lethargic, somnolent and had altered mental status on admission. He has multiple medications which could affect his cognitive status. Unclear what medications he's taking reliably, when dad found him there were pills scattered around the room. Does not seem like an SA. afebrile, HD stable, no obvious source of infection. Renal function and LFTS are unremarkable. Electrolytes WNL. Ammonia and TSH are WNL. VPA level was a little high at 123. Clozaril level was sent but pending, a sendout. # acute toxic encephalopathy - related to polypharmacy. Medications were held except for suboxone, gabapentin which was reduced to 200 mg qid, clozapine which was reduced to 25 mg HS. Today he is awake and alert, normal level of alertness and normal mental status. I discussed his care with the consulting psychiatrist Dr. Eason who says he denies SI or self harming thoughts and may be discharged with outpatient psychiatric follow up. She plans to call his outpatient psychiatrist with update. # cytopenias - neutropenia and thrombocytopenia - probably related to medications. - CBC this wednesday and next week MWF. We are arranging this with primary care. We have call out to his PCP office - not seen recently and needs appt to re- establish care. For discharge the following med changes Gabapentin reduced to 200 mg qid - 2 week prescription sent VPA - restart 500 mg bid today, increase to 1000 mg bid tomorrow and continue clozaril - restart 50 mg tonight and increase to 100 mg daily tomorrow and continue continue suboxone ALL OTHER MEDS HELD pending psychiatry follow up (2) Schizoaffective disorder: (3) Bipolar disorder: (4) Polypharmacy: Admission and Anticipated Discharge Date Admission Date: April 10, 2024 Subjective Feels better, no garnre, cp, dyspnea or n/v/d No confusion or lethargy, walking well Father in room Physical Exam Physical Exam: Last 24h vitals reviewed GEN: no acute distress, sitting in bed HEENT: pupils equal, sclerae anicteric, moist MM RESP: normal WOB CV: def ABD: ND : no ho SKIN: warm and dry, no generalized rashes, no edema NEURO: AOx person, place, and situation. Mentation normal. Face symmetric, speech normal, moves 4 ext spontaneously and equally Results & Data Results & Data Vital Signs (Past 12 Hours) Vital Signs Pulse Pulse Resp BP BP Pulse Ox O2 Del Method 04/12/24 06:00 42 L 14 90/56 L 98 04/12/24 05:01 104/62 04/12/24 05:01 104/62 04/12/24 04:54 59 L 18 99 04/12/24 04:03 56 L 16 99 04/12/24 03:06 50 L 16 96 04/12/24 03:00 106/70 04/12/24 03:00 106/70 04/12/24 02:48 58 L 21 98 04/12/24 02:27 44 L 14 100 04/12/24 01:06 53 L 15 98 04/12/24 01:01 97/59 L 04/12/24 00:51 58 L 15 96 04/12/24 00:36 67 21 100 04/11/24 22:51 59 L 04/11/24 22:50 67 18 109/70 100 Room Air 04/11/24 22:21 56 L 20 90/65 L 99 Room Air 04/11/24 20:24 60 17 98/51 L 99 Room Air Laboratory Results Laboratory Tests 04/12/24 03:09 Hgb 11.8 L Plt Count 123 L Creatinine 0.77 PG Care Time/CCT Total # of Minutes Spent Total Time Spent with Patient: Total time spent is greater than 50% in coordination of care (as documented) at patient's floor/unit and/or counseling patient: Coding Level of Care Code None Diagnoses Acute encephalopathy G93.40 Schizoaffective disorder F25.9 Bipolar disorder F31.9 Active/Remission status: remission status unspecified Polypharmacy Z79.899 (3) Bipolar disorder Active/Remission status: remission status unspecified Qualified Code(s): F31.9 - Bipolar disorder, unspecified
--- NOTE | 2024-04-12 12:08 | Psychiatric Progress Note ---
Date of Service April 12, 2024 Impression / Recommendations Impression Diagnostically consistent with altered mental status of unclear origin. Differential includes polypharmacy/medication side effects with recent medication changes including addition of high dose trazodone and Austedo and formulation change in suboxone vs intentional misuse of medication/s with known substance use history vs intentional overdose (but difficult to confirm given both his and father's denial of this possibility and no ability to quickly screen levels of prescribed medications, but normal QTc on EKG and labwork and UDS reassuring for lack of significant overdose). Catatonia unlikely as no evidence for this on exam today, cross em score of 0 vs 2 (if considered repetitive phrases as mutism). Suspect possible overuse of gabapentin due to increased depression recently and his history of attempting to self-medicate using substances and recent requests for benzodiazepines suggesting his desire to feel more sedated. Gabapentin can be misused especially by those more vulnerable to substance use disorders. Given unclear cause of confusion recommend significant reduction of psychiatric medications and then they can be gradually reintroduced as needed. Given his report of increased depression with weight loss and poor appetite recommended inpatient psychiatric hospitalization once medically stable. He declines this, prefers to continue with outpatient treatment. At this time I do not feel he meets 302 criteria, despite review of petitioning statement, as he denies SI, denies HI, denies any hallucinations/psychosis and doesn't present with signs of psychosis on exam nor behavioral dysregulation and father provided reassuring collateral. Current risk of self-harm is low given denial of SI, future-oriented, has outpatient providers and engaged in treatment discussions. Chronic risk is moderate to high given multiple prior attempts, psychiatric comorbid diagnoses, hx emotional reactivity, BPD, past hospitalizations but also with protective factors of family support, outpatient providers, and ability to establish therapeutic alliance. A: Confusion has resolved, thought process and speech are normal today. Eating and sleeping well. Tolerating reinitiation of select psychiatric medications. Remains no 302 criteria as he continues to deny any safety concerns and no bizarre or disorganized or abnormal behaviors to suggest he cannot meet his basic needs. Asking good and appropriate questions. Reviewed that due to lower ANC today, in mild neutropenic range, that recommendation, since he wants to continue with clozapine, is for three times weekly CBC with ANC until this improves and then he can go back to monthly CBC. He is agreeable to this. Reviewed recommendations regarding restarting Depakote to help with mood stabilization. Valproic acid and clozapine level still pending. Message left with [facility], he agrees to follow-up with them and consents to faxing my notes to them. Overall, I spent a total of 60 minutes with this case including review of chart records, review of labwork, review of EKG QTc, direct evaluation of the patient at bedside, counseling the patient, discussion of the patient with the hospitalist provider, discussion with the psychiatric liason during clinical rounds, review of collateral historian information from the family and documentation in the electronic health record. (1) Schizoaffective disorder: (2) Borderline personality disorder: (3) Substance use disorder: Plan -Stable for discharge from psychiatric standpoint -Discontinue prior to admission: * trazodone * prazosin * topiramate * Vyvanse * Vraylar * Austedo -Medications to restart/continue: * Continue gabapentin at 200mg QID. Would avoid further dose titration in outpatient setting given concern for potential misuse. * Increase clozapine to 50mg HS tonight and then increase to 100mg HS tomorrow if tolerated. * Restart Depakote 500mg BID today and then can increase to 1000mg BID tomorrow if tolerated. Consider further titration once you see your outpatient psychiatric provider. -Get blood work to ensure no worsening of ANC on Wednesday (04/14/2024) and then again on next week (04/17/24, 04/19/24 and 04/21/24) -Valproic acid and clozapine level pending -Will fax notes to [facility] -Reviewed crisis resources and reasons to return to hospital including if symptoms worsen or do not improve or if new issues emerge with restarting depakote or titrating depakote and clozapine or should he feel unsafe which he agrees to do. Interval History Identifying Information Lamine Gray is a 24 yo man with a history of schizoaffective disorder, BPD, substance use in sustained remission and on maintenance treatment of buprenorphine (also being used for pain per his report) admitted medically for increased falls, altered mental status. Psychiatry consulted for "confusion, polypharmacy". Chief Complaint "Good". Subjective Subjective Patient was seen & assessed and interval progress reviewed. He's been eating and reports sleeping well overnight. Had some sweating, denies any other physical symptoms. He father notes he's been somewhat anxious today, Lamine states this is due to "I don't want to be in the hospital" and eagerness to return home. He continues to deny SI nor HI nor hallucinations. His father continues to deny any safety concerns. Reviewed lower ANC today, puts in mild range for which recommendation is three times weekly CBC, he is agreeable to this. States his ANC has dropped slightly in the past but never to the point of having to stop clozapine. He gets bloodwork done at [facility], is agreeable to relying results to Jayla at [facility]. Has [facility] appointment scheduled for 04/24/24, he declines option for sooner appointment, feels comfortable on significantly fewer medications until he sees her. Discussed plan to slowly increase clozapine and restart Depakote which he agrees with. Reviewed keeping gabapentin at low dose which he is agreeable to. Reviewed also with his father and both requested print out of these instructions with discharge paperwork, discussed this would be included with discharge instructions to help him know when to increase dose and avoid confusion as has occurred in the past. He continues to deny any safety concerns, is eager to return home, tolerating reinitiation of medications. No evidence for brain fog or confusion today. Physical Exam Psychiatric Orientation: alert and oriented x 3 Apperance: appropriately dressed Eye Contact: good eye contact Motor Behavior: no abnormal motor movements Speech: normal rate/rhythm/volume of speech Affect: euthymic affect Mood: no depressed mood and no anxious mood Thought Process: goal directed thought process Thought Content: reality based without delusions Suicidal Thoughts: denies suicidal thoughts Homicidal Thoughts: denies homicidal thoughts Hallucinations: no auditory hallucinations and no visual hallucinations Cognition: recent memory grossly intact, remote memory grossly intact, attention grossly intact and language grossly intact Insight: + fair insight Judgment: + fair judgement Vital Signs (Past 24 Hours) Last Vital Signs Temp 36.8 C 04/10/24 16:59 Pulse 83 04/12/24 09:00 Resp 10 L 04/12/24 09:00 BP 104/75 04/12/24 09:00 Pulse Ox 98 04/12/24 09:00 O2 Del Method Room Air 04/11/24 22:50 Results & Data ([facility]) Laboratory Results Laboratory Results - last 24 hr 03/06/0204/11/24 04/12/24 11:51 22:32 03:09 WBC 5.88 RBC 3.83 L Hgb 11.8 L Hct 33.7 L MCV 88.0 MCH 30.8 MCHC 35.0 RDW Std Deviation 40.2 RDW Coeff of Silverio 12.6 Plt Count 123 L MPV 12.5 H Immature Gran % (Auto) 0.3 Neut % (Auto) 21.1 Lymph % (Auto) 58.3 Aiken % (Auto) 14.3 Eos % (Auto) 4.8 Baso % (Auto) 1.2 Neut # (Auto) 1.24 L Lymph # (Auto) 3.43 H Aiken # (Auto) 0.84 H Eos # (Auto) 0.28 Baso # (Auto) 0.07 Immature Gran # (Auto) 0.02 Polychromasia 1+ Sodium 142 Potassium 4.2 Chloride 106 Carbon Dioxide 31 Anion Gap 5 BUN 10 Creatinine 0.77 Est Cr Clr Drug Dosing 135.8 eGFR 129.82 BUN/Creatinine Ratio 13.0 Glucose 70 POC Glucose 116 H Calcium 8.8 Total Bilirubin 0.4 AST 10 L ALT 5 L Alkaline Phosphatase 43 Total Protein 6.4 Albumin 3.5 Globulin 2.9 Albumin/Globulin Ratio 1.2 Clozapine Pending Norclozapine Pending Current Inpatient Medications Current Inpatient Medications: Current Inpatient Medications Acetaminophen (Acetaminophen 325 Mg Tab) 650 mg PO Q4H PRN PRN Reason: pain/fever Stop: 05/10/24 22:45 Buprenorphine/Naloxone (Buprenorphine/Naloxone 8/2 Mg Tab) 1 tab SL BID REPLACED BY [facility] Stop: 05/11/24 17:04 Last Admin: 04/12/24 08:00 Dose: 1 tab Clozapine (Clozapine 25 Mg Tab) 50 mg PO HS REPLACED BY [facility]; Protocol Stop: 05/12/24 20:59 Gabapentin (Gabapentin 100 Mg Cap) 200 mg PO QID REPLACED BY [facility] Stop: 05/11/24 16:59 Last Admin: 04/12/24 08:00 Dose: 200 mg Lactated Ringer's (Lr) 1,000 mls @ 125 mls/hr IV .Q8H REPLACED BY [facility] Stop: 04/12/24 14:29 Last Admin: 04/12/24 06:54 Dose: 125 mls/hr Ondansetron HCl (Ondansetron Inj 2 Mg/Ml 2 Ml Vial) 4 mg IV Q6H PRN PRN Reason: Nausea Stop: 05/10/24 22:45
[2024-04-12 12:39] VITALS: BP 112/61; PULSE 82; RESP 18; TEMP 98.5; O2SAT 100
--- NOTE | 2024-04-12 18:36 | Discharge Summary ---
Discharge Summary Date of Service April 12, 2024 Principal Dx & Hospital Course #1 = Principal Diagnosis (1) Acute encephalopathy: 24yo male with history of Anxiety, Depression, OCD, Personality disorder presenting from home with progressive functional decline over the last 6 months. Patient has been increasingly somnolent, difficulty with balance. He did fall and strike his head. Was lethargic, somnolent and had altered mental status on admission. He has multiple medications which could affect his cognitive status. Unclear what medications he's taking reliably, when dad found him there were pills scattered around the room. Does not seem like an SA. Per admitting attending note: "302 petition from [facility] --> Picture of med bottles open on floor, had been asking for benzos recently. Had been following with Alena for a year and had been stable. Pt denies active SI/HI on admitting provider assessment, and his father is at bedside also reports that he has not had any SI/HI. " afebrile, HD stable, no obvious source of infection. Renal function and LFTS are unremarkable. Electrolytes WNL. Ammonia and TSH are WNL. VPA level was a little high at 123. Clozaril level was sent but pending, a sendout. # acute toxic encephalopathy - related to polypharmacy. Medications were held except for suboxone, gabapentin which was reduced to 200 mg qid, clozapine which was reduced to 25 mg HS. Today he is awake and alert, normal level of alertness and normal mental status. I discussed his care with the consulting psychiatrist Dr. Eason who says he denies SI or self harming thoughts and may be discharged with outpatient psychiatric follow up. She plans to call his outpatient psychiatrist with update. # cytopenias - neutropenia and thrombocytopenia - probably related to medications. - CBC this wednesday and next week MWF. We are arranging this with primary care. We have call out to his PCP office - not seen recently and needs appt to re- establish care. # opioid use disorder - continue suboxone I updated his father in the room For discharge the following med changes Gabapentin reduced to 200 mg qid - 2 week prescription sent VPA - restart 500 mg bid today, increase to 1000 mg bid tomorrow and continue clozaril - restart 50 mg tonight and increase to 100 mg daily tomorrow and continue continue suboxone ALL OTHER MEDS HELD pending psychiatry follow up (2) Schizoaffective disorder: (3) Bipolar disorder: (4) Polypharmacy: Notes For Next Care Provider Medication Changes From Visit Gabapentin reduced to 200 mg qid - 2 week prescription sent VPA - restart 500 mg bid today, increase to 1000 mg bid tomorrow and continue clozaril - restart 50 mg tonight and increase to 100 mg daily tomorrow and continue continue suboxone ALL OTHER MEDS HELD pending psychiatry follow up Admission HPI Per Admitting Provider 24yo male with history of anxiety, depression, OCD presenting with confusion. Patient was unable to provide history at time of admission. History obtained through discussion with ER attending and staff. Patient with longstanding history of psychiatric illness. He presents today with 6 months of progressive functional decline - lethargy and falling. Father reports that patient sleeps 22 hours per day. He is managing his own medications but family is uncertain how he is taking them. Patient with low blood pressure on arrival at 92/54 which improved after 1L NSS ER Course: NSS x 1L Discharge Exam Last 24h vitals reviewed GEN: no acute distress, sitting in bed HEENT: pupils equal, sclerae anicteric, moist MM RESP: normal WOB CV: def ABD: ND : no ho SKIN: warm and dry, no generalized rashes, no edema NEURO: AOx person, place, and situation. Mentation normal. Face symmetric, speech normal, moves 4 ext spontaneously and equally Discharge Plan Discharge Items Patient Disposition: Home - Self-Care Reason For Visit: CONFUSION Discharge Diagnosis: Acute toxic encephalopathy Activity: Resume your previous activity Non-emergency contact: Primary Care Provider and Psychiatrist Call non-emergency contact if: you have any medication questions and your symptoms worsen Follow-up/Referrals: Jayla Mota PA-C [Outside Practitioners] - Salas Morales MD [Primary Care Provider] - Diet: Regular Addtl Attending Provider Instructions: See your psychiatrist as scheduled 04/24 Reintroduce your medications as below, if you become more confused or groggy d uring this process stop increasing your meds and call your psychiatrist If you have recurrence of significant confusion / lethargy / weakness return to the ER Continue gabapentin and suboxone at current dose Take 50 mg of clozapine tonight and increase to 100 mg tomorrow night Take depakote 500 mg twice a day for one day then increase to 1000 mg twice a day Have a CBC drawn Wednesday then Wednesday, Wednesday, and Wednesday next week to monitor your blood counts. We are contacting your primary care doctor to arrange this. Your neutrophil count is a bit low (a type of white blood cell, part of your immune system). If your neutrophil count doesn't come up, your meds will need to be adjusted It was a pleasure taking care of you in the hospital, Malia Bernal MD Add Resolution Expert Provider Instructions: Utilize National Crisis Hotline if needed: 988 If you experience new medication side effects, your condition worsens or does not improve or if you feel unsafe please return to the hospital or utilize 911 and then inpatient psychiatric hospitalization can be explored to make further medication adjustments as needed. Pending Studies at Discharge: No Stand-Alone Forms: My [facility] [employer], Smoking Cessation Medications and DC Order Prescriptions: New gabapentin 100 mg Capsule 200 mg PO QID Qty: 56 0RF Continued Zubsolv 8.6-2.1 mg tablet, sublingual 1 tab SUBLINGUAL BID omega-3 fatty acids 1,000 mg Capsule 2,000 mg PO DAILY Changed clozapine 100 mg tablet See Rx Instructions .ROUTE .COMPLEX Qty: 0 0RF Rx Instructions: half tab tonight then resume 1 tab at bedtime thereafter divalproex 500 mg tablet extended release 24 hr See Rx Instructions .ROUTE .COMPLEX Qty: 0 0RF Rx Instructions: take one tab twice a day for one day, then increase to 2 tabs twice a day and continue Held Vraylar 6 mg capsule 6 mg PO QAM Hold Instructions: Resume on 05/10/24. hold until/if restarted by your psychiatrist topiramate 100 mg tablet 100 mg PO AMHS Hold Instructions: Resume on 05/10/24. hold until/if restarted by your psychiatrist trazodone 150 mg tablet 300 mg PO HS Hold Instructions: Resume on 05/10/24. hold until/if restarted by your psychiatrist lisdexamfetamine 30 mg capsule 30 mg PO QAM Hold Instructions: Resume on 05/10/24. hold until/if restarted by your psychiatrist Auvelity 45-105 mg tablet,IR,delayed rel,biphasic 1 tab PO BID Hold Instructions: Resume on 05/10/24. discuss with your psychiatrist when/if to resume Rx Instructions: MORNING AND AFTERNOON Austedo XR 12 mg Tablet Extended Release 24 Hr 12 mg PO DAILY Hold Instructions: Resume on 05/10/24. hold until/if restarted by your psychiatrist Discontinued gabapentin 600 mg tablet 600 mg PO QID Discharge Orders: Discharge Order (Routine); Ordered 04/12/24 Ordered By: Malia Bernal Admission Data Admit Date/Time: 04/10/24 20:37 Attending Provider: Malia Bernal Admit Provider: Karime Curry Primary Care Provider: Salas Morales Other Providers: Aysha Eason; Gus Anderson; Haily Pierre; Giovanna Low; Surendra Crabtree; Fidencio Patel; Karime Curry Other Interventions: Discharge Summary Assessment (RN) Last Done: 04/12/24 13:06 Hospital Stay Data Consultations 04/10/24 20:37 Consult Psychiatry Routine 04/10/24 21:07 ED Decision to Admit Stat Diagnostic Imagining Performed 04/10/24 18:11 CT head/brain wo con Stat Pending Results Patient Have Any Pending Studies at Discharge: No Discharge Instructions Given to Patient (Per Discharging Provider) See your psychiatrist as scheduled 04/24 Reintroduce your medications as below, if you become more confused or groggy during this process stop increasing your meds and call your psychiatrist If you have recurrence of significant confusion / lethargy / weakness return to the ER Continue gabapentin and suboxone at current dose Take 50 mg of clozapine tonight and increase to 100 mg tomorrow night Take depakote 500 mg twice a day for one day then increase to 1000 mg twice a day Have a CBC drawn Wednesday then Wednesday, Wednesday, and Wednesday next week to monitor your blood counts. We are contacting your primary care doctor to arrange this. Your neutrophil count is a bit low (a type of white blood cell, part of your immune system). If your neutrophil count doesn't come up, your meds will need to be adjusted It was a pleasure taking care of you in the hospital, Malia Bernal MD Total Time Total Time Spent Total Time Spent (In Minutes): I personally spent: 45 minutes today on clinical care activities including: reviewing chart notes and vital signs reviewing labs discussion with home energy consultant supervisor(s), bedside RN examining and counseling the patient counseling the patient's family writing orders writing prescriptions, discharge instructions documentation Coding Level of Care Code 18976 INP/OBS DISCH >30 MIN Diagnoses Acute encephalopathy G93.40 Schizoaffective disorder F25.9 Bipolar disorder F31.9 Active/Remission status: remission status unspecified Polypharmacy Z79.899
--- NOTE | 2024-04-12 20:27 | Electrocardiogram Report ---
Test Reason : Blood Pressure : */* mmHG Vent. Rate : 92 BPM Atrial Rate : 92 BPM P-R Int : 172 ms QRS Dur : 96 ms QT Int : 360 ms P-R-T Axes : 74 74 67 degrees QTcB Int : 445 ms Normal sinus rhythm Normal ECG When compared with ECG of 17-Nov-2021 10:21, No significant change was found Confirmed by Odell Moulton ([id number]) on 04/12/2024 8:27:03 PM Referred By: REFERRED SELF Confirmed By: Odell Moulton
[2024-04-12] MEDS ORDERED: cloZAPine 25 MG TAB PO SCH (21:00)
[2024-04-14 15:43] LABS: Valproic Acid, Free 14.6 mg/L (4.8-17.3); Valproic Acid, Total 97.3 mg/L (50.0-100.0)
[2024-04-15 07:42] LABS: Clozapine 27 mcg/L; Norclozapine 11 mcg/L (25-400)
== END 2024-04-12 13:06 | disposition home or self-care (01) | DRG 92 ==
LOC: ED 16:21 → EDINP 20:37 → SUATTDRO 20:37 → EDINP 22:46